=== PATIENT | male | born 1950 | race Asian ===

== ENCOUNTER 2017-01-08 09:59 | Emergency (ER) | payer BC, OTHER ==
[2017-01-08 10:08] VITALS: BP 152/78
[2017-01-08] MEDS ORDERED: Tetan/Diph/Pertus SYR(Tdap)* 0.5 ML SYR(BOOSTRIX) use SYR IM ONE (10:16)
--- NOTE | 2017-01-08 10:22 | ED ---
Head Injury - HPI Summary HPI Summary: Pt here w/ head injury today. Was working on his piano - leaning into top and when he went to stand, struck head on cover and now has a laceration. Denies LOC , headache, visual change, vomiting, neck pain. Pain is focal to area of injury , Offered pain meds but pt declines - just wants wound closed. Unsure of tetanus vaccine. Denies use of anti-coagulants. - History Of Current Complaint Chief Complaint: EDLacSutureRecheck Stated Complaint: HEAD LAC Time Seen by Provider: 01/08/17 10:11 Hx Obtained From: Patient, Family/Asphalt Paver - Pain Intensity: 4 - Allergies/Home Medications Allergies/Adverse Reactions: Allergies Allergy/AdvReac Type Severity Reaction Status Date / Time No Known Allergies Allergy Verified 01/08/17 10:05 PMH/Surg Hx/FS Hx/Imm Hx Previously Healthy: Yes Endocrine/Hematology History: Denies: Hx Anticoagulant Therapy, Hx Blood Disorders, Hx Diabetes Cardiovascular History: Denies: Hx Congestive Heart Failure, Hx Hypertension, Hx Pacemaker/ICD GI History: Reports: Hx Gall Bladder Disease - gall stones History: Reports: Other Problems/Disorders - kidney stones Sensory History: Denies: Hx Hearing Aid Psychiatric History: Denies: Hx Panic Disorder - Surgical History Surgery Procedure, Year, and Place: GALLBLADDER - Immunization History Date of Tetanus Vaccine: up to date pe pt Immunizations Up to Date: Unable to Obtain/Confirm Infectious Disease History: No Infectious Disease History: Denies: Traveled Outside the [place] in Last 30 Days - Social History Occupation: Retired Lives: With Family Alcohol Use: Rare Hx Substance Use: No Substance Use Type: Reports: None Hx Tobacco Use: Yes Smoking Status (MU): Former Smoker Review of Systems Constitutional: Negative Negative: Fatigue Eyes: Negative Negative: Photophobia, Blurred Vision Musculoskeletal: Negative Skin: Other - see HPI Neurological: Negative Psychological: Normal All Other Systems Reviewed And Are Negative: Yes Physical Exam Triage Information Reviewed: Yes Vital Signs On Initial Exam: Initial Vitals Temp Pulse Resp BP Pulse Ox 97.1 F 86 16 152/78 96 01/08/17 10:05 01/08/17 10:05 01/08/17 10:05 01/08/17 10:05 01/08/17 10:05 Vital Signs Reviewed: Yes Appearance: Positive: Well-Appearing, No Pain Distress, Well-Nourished Skin: Positive: Warm - v-shaped flap lacertion over Lt superior parietal region Eyes: Positive: Normal, EOMI, ZAHEER ENT: Positive: Hearing grossly normal, TMs normal - no hemotympanum Neck: Positive: Supple, Nontender Respiratory/Lung Sounds: Positive: Breath Sounds Present Cardiovascular: Positive: Pulses are Symmetrical in both Upper and Lower Extremities Musculoskeletal: Positive: Strength/ROM Intact Neurological: Positive: Sensory/Motor Intact, CN Intact II-III Psychiatric: Positive: Normal Procedures - Laceration/Wound Repair 1 Location: head - Lt parietal region Description: Irregular - v-shaped flap Anesthesia: Local, Marcaine - + epi Length, Depth and Shape: each side of flap is 2.5cm in length (so total length 5cm) and flap is 3mm thick - clean Betadine Prep?: Yes Irrigated w/ Saline (ccs): 250 Laceration/Wound Explored: clean Closure: Terri #__ - 8 Layer Closure?: No Sterile Dressing Applied?: Yes - triple anbx ointment + telfa dressing - pt tolerated well Diagnostics - Vital Signs Vital Signs Temp Pulse Resp BP Pulse Ox 01/08/17 10:05 97.1 F 86 16 152/78 96 - Laboratory Lab Statement: Any lab studies that have been ordered have been reviewed, and results considered in the medical decision making process. Head Injury Course/Dx - Diagnoses Provider Diagnoses: Scalp laceration Discharge - Discharge Plan Condition: Stable Disposition: HOME Patient Education Materials: Laceration (ED), Staple Care (ED) Print Language: MANDARIN Referrals: Kevin Latham MD [Primary Care Provider] - Additional Instructions: Keep dressing covered for 24-48 hours. After this time, you may remove - gently wash with soap and water, rinse well and pat dry then reapply topical antibiotic ointment. Perform this regimen daily until seen by PCP in 7-10 days for staple removal. Call Tuesday to schedule an appointment. For pain, you may ice and take ibuprofen with food. *If you develop redness, swelling, fever, chills, purulent drainage, seek medical attention sooner
== END 2017-01-08 11:35 | disposition home or self-care (01) ==
LOC: ED 09:59
DX: S01.01XA Laceration without foreign body of scalp, initial encounter (principal); W22.8XXA Striking against or struck by other objects, initial encounter; Y93.89 Activity, other specified; Y92.9 Unspecified place or not applicable; Z87.891 Personal history of nicotine dependence
CPT/HCPCS: 12002; 90471; 90715; 99282

== ENCOUNTER 2017-01-17 09:41 | Emergency (ER) | payer OTHER ==
[2017-01-17 09:46] VITALS: BP 131/70
--- NOTE | 2017-01-17 10:59 | UC ---
Kylah Esparza Alfonso, scribed for Yolanda Henry DO on 01/17/17 at 1006 . Laceration HPI - HPI Summary HPI Summary: This patient is a 66 year old M presenting to [facility] accompanied by daughter for staple removal secondary to a laceration approximately 10 days ago. There are 8 dorene in his left scalp. Symptoms aggravated and alleviated by nothing. The patient denies fever, chills, CP, SOB, headache, dizziness, confusion, nausea, balance loss, tiredness, erythema, swelling, and pain. PMHx of HLD. FHx HTN, DM. High blood pressure noted, likely secondary to condition. - History Of Current Complaint Chief Complaint: UCSkin Stated Complaint: SUTURE REMOVAL Time Seen by Provider: 01/17/17 09:52 Hx Obtained From: Patient, Family/Deportation Examiner - female Laceration Location: Head - Left scalp Onset/Duration: Sudden Onset, Lasting Days - approx 10, Still Present Severity: Moderate Pain Intensity: 0 Pain Scale Used: 0-10 Numeric Aggravating Factors: Nothing - Allergies/Home Medications Allergies/Adverse Reactions: Allergies Allergy/AdvReac Type Severity Reaction Status Date / Time No Known Allergies Allergy Verified 01/08/17 10:05 Home Medications: Home Medications Cholesterol Med 01/17/17 [History] PMH/Surg Hx/FS Hx/Imm Hx Endocrine History: Other - HLD Other Endocrine History: hyperlipidemia Other History Of: Negative For: Anticoagulant Therapy - Surgical History Surgical History: Yes Surgery Procedure, Year, and Place: GALLBLADDER - Family History Known Family History: Positive: Hypertension, Diabetes - Social History Lives: With Family Alcohol Use: Rare Substance Use Type: None Smoking Status (MU): Former Smoker - Immunization History Most Recent Influenza Vaccination: 2013 Most Recent Tetanus Shot: 2013 Most Recent Pneumonia Vaccination: never Review of Systems Constitutional: Negative Skin: Negative Eyes: Negative ENT: Negative Respiratory: Negative Cardiovascular: Negative Gastrointestinal: Negative Genitourinary: Negative Motor: Negative Neurovascular: Negative Musculoskeletal: Negative Neurological: Negative, Other - Negative balance loss Psychological: Negative All Other Systems Reviewed And Are Negative: Yes Physical Exam Triage Information Reviewed: Yes Appearance: Well-Appearing, No Pain Distress, Well-Nourished Vital Signs: Initial Vital Signs Temp 98.4 F 01/17/17 09:43 Pulse 70 01/17/17 09:43 Resp 18 01/17/17 09:43 BP 131/70 01/17/17 09:43 Pulse Ox 98 01/17/17 09:43 Vital Signs Reviewed: Yes Eyes: Positive: Conjunctiva Clear. Negative: Discharge ENT: Positive: Hearing grossly normal. Negative: Muffled/hoarse voice Neck exam: Normal Neck: Positive: Supple Respiratory: Positive: Lungs clear, Normal breath sounds, No respiratory distress, No accessory muscle use Cardiovascular: Positive: RRR, No Murmur Abdomen Description: Positive: Nontender, Soft. Negative: Distended, Guarding Bowel Sounds: Positive: Present Musculoskeletal Exam: Normal Neurological: Positive: Alert, Muscle Tone Normal Psychological Exam: Normal Psychological: Positive: Age Appropriate Behavior Skin: Positive: Other - 8 dorene removed from left scalp. Wound is clean and dry. A little crusted blood. Edges are well approximated. No erythema, swelling , dehisciense or drainage. Laceration Course/Dx - Differential Dx - Laceration/Wound Provider Diagnoses: suture removal, healing wound Discharge - Discharge Plan Condition: Stable Disposition: HOME Patient Education Materials: Staple Care (ED) Referrals: Kevin Latham MD [Primary Care Provider] - If Needed The documentation as recorded by the Kylah duarte Alfonso accurately reflects the service I personally performed and the decisions made by , Yolanda Henry DO.
== END 2017-01-17 10:10 | disposition home or self-care (01) ==
LOC: UCEAST 09:41
DX: S01.01XD Laceration without foreign body of scalp, subsequent encounter (principal); X58.XXXD Exposure to other specified factors, subsequent encounter; Y92.9 Unspecified place or not applicable; E78.5 Hyperlipidemia, unspecified; Z90.49 Acquired absence of other specified parts of digestive tract; Z87.891 Personal history of nicotine dependence